=== PATIENT | female | born 1930 | race Caucasian/White ===

== ENCOUNTER → 2017-04-26 | Outpatient (CLI) | payer OTHER | LOC: FIMAGING 17:31 | PROVIDERS: ATTEND Physician Assistant Medical | DX: J98.4 Other disorders of lung (principal); I51.7 Cardiomegaly; Z85.3 Personal history of malignant neoplasm of breast ==

== ENCOUNTER 2017-06-02 09:30 | Day surgery (SDC) | payer OTHER ==
[2017-06-02] MEDS ORDERED: DIAZEPAM 5 MG TAB PO ONE (09:32)
[2017-06-02] MEDS ORDERED: diphenhydrAMINE 25 MG CAP PO ONE ×2 (09:32→10:13)
[2017-06-02] MEDS ORDERED: NS 1,000 ML IV ONE (09:32)
[2017-06-02] MEDS ORDERED: FAMOTIDINE 20 MG TAB PO ONE (09:32)
[2017-06-02] MEDS ORDERED: ASPIRIN EC 325 MG TAB PO ONE ×2 (09:32→10:14)
--- NOTE | 2017-06-02 10:05 | CPEKG ---
Heart Rate: 71 RR Interval: 845 P-R Interval: 148 QRSD Interval: 82 QT Interval: 396 QTC Interval: 431 P [place]: 59 QRS [place]: 26 T Wave [place]: -25 EKG Severity - ABNORMAL ECG - EKG Impression: SINUS RHYTHM EKG Impression: NONSPECIFIC ST DEPRESSION INFERIOR AND LATERAL LEADS. Electronically Signed By: Ruperto Flores 02-Jun-2017 21:01:14
[2017-06-02] MEDS ORDERED: FAMOTIDINE 20 MG TAB ONE (10:13)
[2017-06-02] MEDS ORDERED: DIAZEPAM 5 MG TAB ONE (10:14)
[2017-06-02 10:19] LABS: % IMMATURE GRANULYOCYTES 0.2 % (0.0-1.1); ABSOLUTE IMMATURE GRANULOCYTES 0.01 10^3/uL (0.00-0.10); ADD DIFF? NO; ADD MORPH? NO; ADD SCAN? NO; ATYPICAL LYMPHOCYTE FLAG 10 (0-99); FRAGMENT RBC FLAG 0 (0-99); HEMATOCRIT 43.1 % (38.0-47.0); HEMOGLOBIN 13.7 g/dL (12.6-16.3); LEFT SHIFT FLG 0 (0-99); LIPEMIA HEMOLYSIS FLAG 80 (0-99); MEAN CELL HEMOGLOBIN 28.9 pg (27.9-34.1); MEAN CELL HEMOGLOBIN CONCENTR. 31.8 g/dL (32.4-36.7); MEAN CELL VOLUME 90.9 fL (81.5-99.8); MEAN PLATELET VOLUME 10.5 fL (8.7-11.7); PLATELET CLUMPS FLAG 20 (0-99); PLATELET COUNT 202 10^3/uL (150-400); RED BLOOD CELL COUNT 4.74 10^6/uL (4.18-5.33); RED CELL DISTRIBUTION WIDTH 13.6 % (11.5-15.2)
[2017-06-02 10:42] LABS: ANION GAP 11 mEq/L (8-16); CALCIUM 9.6 mg/dL (8.5-10.4); CARBON DIOXIDE 27 mEq/l (22-31); CHLORIDE 105 mEq/L (97-110); CHOLESTEROL 225 mg/dL (140-220); CHOLESTEROL/HDL RATIO 3.46 RATIO (1.00-4.44); CREATININE 0.6 mg/dL (0.6-1.0); GLOMERULAR FILTRATION RATE > 60; GLUCOSE 99 mg/dL (70-100); HIGH DENSITY LIPOPROTEIN 65 mg/dL (40-85); LOW DENSITY LIPOPROTEIN 143 mg/dL (80-100); MAGNESIUM 2.2 mg/dL (1.6-2.3); NON-HIGH DENSITY LIPOPROTEIN 160 mg/dL (90-129); POTASSIUM 4.1 mEq/L (3.5-5.2); SODIUM 143 mEq/L (134-144); TRIGLYCERIDE 88 mg/dL (35-135); VERY LOW DENSITY LIPOPROTEINS 17 mg/dL (8-25)
[2017-06-02] MEDS ORDERED: MIDAZOLAM 2 MG/2 ML VIAL ONE (11:05)
[2017-06-02] MEDS ORDERED: fentaNYL 100 MCG/2 ML INJ ONE (11:05)
[2017-06-02] MEDS ORDERED: LIDOCAINE 1% 300 MG/30 ML SDV ONE (11:05)
[2017-06-02] MEDS ORDERED: IOPAMIDOL (ISOVUE-370) 150 ML BTL IV ONE (11:06)
[2017-06-02 11:14] LABS: INR 0.92 (0.83-1.16); PROTIME(PATIENT) 12.3 SEC (12.0-15.0)
[2017-06-02] MEDS ORDERED: HEPARIN 10,000 UNIT/10 ML MDV ONE (12:37)
[2017-06-02] MEDS ORDERED: ONDANSETRON 4 MG/2 ML VIAL IVP PRN (13:40)
[2017-06-02] MEDS ORDERED: OXYCODONE/APAP 5/325 TAB PO PRN (13:40)
[2017-06-02] MEDS ORDERED: HYDROCODONE/APAP 5/325 TAB PO PRN (13:40)
[2017-06-02] MEDS ORDERED: ATROPINE SULFATE 1 MG/10 ML SYR IVP PRN (13:40)
[2017-06-02] MEDS ORDERED: NITROGLYCERIN 0.4 MG BTL SL PRN (13:40)
[2017-06-02] MEDS ORDERED: NS 1,000 ML IV SCH (13:45)
--- NOTE | 2017-06-02 13:51 | CPIP ---
[f rep st] INVASIVE CARDIAC PROCEDURE INDICATION FOR PROCEDURE: Dyspnea on exertion, abnormal nuclear stress test with high risk findings including anterior ischemia, transient ischemic dilatation and ECG changes with Lexiscan infusion a nd syncope concerning for arrhythmogenic etiology. PROCEDURE PERFORMED: Diagnostic left heart catheterization. PROCEDURE: After informed consent was obtained, the patient was brought to the cardiac catheterizat ion laboratory where she was prepped and draped in a sterile fashion. Using 1% lidocaine, the right groin was anesthetized. Using the modified Seldinger technique, a 6-[place] catheter was placed int o the right common femoral artery without complications. JL4 catheter was used to cannulate the lef t main coronary artery. Images of the left coronary anatomy were obtained in multiple projections. The JL4 catheter was exchanged over a guidewire for a JR4 catheter. JR4 catheter was used to cannu late the right coronary artery unsuccessfully. This was exchanged over a guidewire for a Popeye r ight catheter. A Popeye right catheter was unable to successfully cannulate the right coronary ar thomas. This was exchanged over a guidewire for an AR1 catheter which was ultimately used to cannulat e the right coronary artery. The right coronary artery was imaged in multiple projections. The catheter was removed over a guide wire without complications. Angled pigtail catheter was used to cross the aortic valve. LVEDP was assessed. Left ventriculogram was performed. Aortic valve gradient was assessed. Angled pigtail c atheter was removed over a wire without complications. Imaging of the right common femoral artery was obtained, demonstrating appropriate placement of the catheter above the bifurcation of the common femoral vessel. FINDINGS: 1. Left main is a long vessel which is normal size and caliber without evidence of coronary artery disease. 2. Left anterior descending artery is free of coronary artery disease. There is a ramus intermediu s branch that is moderate size and caliber. There is no evidence of coronary disease in the ramus b ranch. 3. Circumflex vessel is a codominant vessel. There are mild luminal irregularities within the prox imal portion of the circumflex vessel. There is a moderate sized 1st obtuse marginal branch with no evidence of coronary disease. 4. The right coronary artery is a nondominant vessel. There is a small PDA and PLV branch. Some m ild luminal irregularities within the proximal midportion of the vessel with no evidence of flow-jimenez iting coronary artery disease. HEMODYNAMICS: LVEF 60% to 65%. LVEDP 19 mmHg. Aortic valve gradient none. CONCLUSION: 1. Mild nonobstructive coronary artery disease. 2. Normal left ventricular function. 3. Mildly elevated LVEDP at 19 mmHg. PLAN: 1. Angio-Seal placement. 2. Patient will recover in the CVC. /[id number]/MODL
== END 2017-06-02 17:32 | disposition home or self-care (01) ==
LOC: FCATH 09:30
PROVIDERS: ATTEND Internal Medicine Cardiovascular Disease
PROC: B2151ZZ Fluoroscopy of Left Heart using Low Osmolar Contrast (ICD-10-PCS; principal; 2017-06-02)
PROC: 4A023N7 Measurement of Cardiac Sampling and Pressure, Left Heart, Percutaneous Approach (ICD-10-PCS; principal; 2017-06-02)
PROC: B2111ZZ Fluoroscopy of Multiple Coronary Arteries using Low Osmolar Contrast (ICD-10-PCS; principal; 2017-06-02)
DX: R06.02 Shortness of breath (principal); R55 Syncope and collapse; R94.39 Abnormal result of other cardiovascular function study; I87.2 Venous insufficiency (chronic) (peripheral); I27.2 Other secondary pulmonary hypertension; Z82.49 Family history of ischemic heart disease and other diseases of the circulatory system; Z77.22 Contact with and (suspected) exposure to environmental tobacco smoke (acute) (chronic)
CPT/HCPCS: 93005; 93458; C1769; C1887; C1760; J1644; J2250; J3010; Q9967

== ENCOUNTER 2017-06-30 07:42 | Day surgery (SDC) | payer OTHER ==
[2017-06-30] MEDS ORDERED: LIDOCAINE 1% 300 MG/30 ML SDV SC ONE (07:48)
--- NOTE | 2017-06-30 09:12 | PDHPUP ---
History & Physical Update H&P update statement: This history and physical update is based on an assessment of the patient which was completed after admission or registration (within 24 hours), but prior to the surgery/procedure. H&P update: H&P reviewed & patient examined, no change in patient's condition since H&P completed
--- NOTE | 2017-06-30 10:41 | GPN ---
[f rep st] PROCEDURE NOTE DATE OF PROCEDURE: 06/30/2017 PROCEDURE PERFORMED: Implantable loop recorder. INDICATION FOR PROCEDURE: Non-prodromal syncope resulting in facial trauma. PROCEDURE: After informed consent was obtained, the patient was brought to the cardiac procedure paul . The fifth intercostal space on the left side 2 cm from midline was outlined. The patient was pre pped and draped in a sterile fashion. Using 1% lidocaine, the left fifth intercostal space 2 cm from midline was anesthetized with 1% lidocaine. An incision tool was used to make an appropriate incision along the skin. This was modified with a 5 blade scalpel. An appropriate tract was placed and the device was deployed without complication. Hemostasis was obtained. The patient tolerated the procedure well. Steri-Strips were placed. A yordy rile dressing was obtained. At the time of this dictation, the patient was being prepped for device interrogation. PLAN: 1. The patient will be discharged home after checking device recorder. 2. The patient is scheduled for followup in the office next week on July 10, 2017 for wound and device check. /[id number]/MODL
== END 2017-06-30 10:04 | disposition home or self-care (01) ==
LOC: FCATH 07:42
PROVIDERS: ATTEND Internal Medicine Cardiovascular Disease
PROC: 0JH632Z Insertion of Monitoring Device into Chest Subcutaneous Tissue and Fascia, Percutaneous Approach (ICD-10-PCS; principal; 2017-06-30)
DX: R55 Syncope and collapse (principal); I25.10 Atherosclerotic heart disease of native coronary artery without angina pectoris; I27.2 Other secondary pulmonary hypertension; Z85.3 Personal history of malignant neoplasm of breast
CPT/HCPCS: C1764